=== PATIENT | female | born 1995 | race Caucasian/White ===

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

== ENCOUNTER 2018-05-05 20:55 | Emergency (ER) | payer BC ==
--- NOTE | 2018-05-05 21:29 | EDPHY ---
H & P Time Seen by Provider: 05/05/18 21:12 HPI/ROS: CHIEF COMPLAINT: Scalp laceration HISTORY OF PRESENT ILLNESS: 22-year-old female arrives via private vehicle stating that she was walking in the dark, impacted a branch impacting the vertex of her head sustaining laceration. No headache. No nausea or vomiting. No loss of consciousness. Full recollection of all events. No amnesia. No midline C-spine pain. No peripheral paresthesia, weakness, numbness. Tetanus up-to-date. PRIMARY CARE PROVIDER: REVIEW OF SYSTEMS: 10 systems reviewed and negative with the exception of the elements mentioned in the history of present illness PAST MEDICAL/SURGICAL HISTORY: no anticoagulant use, no relevant medical/ surgical history SOCIAL HISTORY: Positive for alcohol use earlier today PHYSICAL EXAM 1) GENERAL: Well-developed, well-nourished, alert and oriented. Appears anxious , hyperventilating Answering questions appropriately. 2) HEAD: Normocephalic, 8 cm v-shaped flap laceration on the vertex of scalp with galea defects identified. 3) HEENT: Pupils equal, round, reactive to light bilaterally. Negative Horners. Nasopharynx, oropharynx, clear. No deformity or angulation of nose. No septal hematoma. No rhinorrhea. No oral trauma. Ears bilaterally with normal tympanic membranes. No hemotympanum. No fluid or blood in the external auditory canal. No raccoon eyes. No Young sign. Teeth are normally aligned with no gross malocclusion, TMJ bilaterally nontender, facial bones nontender including the zygomatic arch, maxilla mandible. 4) NECK: No cervical collar is on. Posterior cervical spine is nontender, no stepoff, no effusion. Full range of motion which does not elicit any midline cervical spine pain, no posterior midline tenderness, no step-off. 5) LUNGS: Clear to auscultation bilaterally, no wheezes, no rhonchi, no retractions. No obvious signs of trauma. No chest wall pain. No flaring, no grunting. Moving symmetrically. No crepitus. 6) HEART: [Regular rate and rhythm, 7) ABDOMEN: No guarding, no rebound, no focal tenderness, no peritoneal signs, no signs of trauma, no ecchymosis 8) MUSCULOSKELETAL: Moving all extremities, no focal areas of tenderness, no obvious trauma. 9) BACK: No midline vertebral tenderness, no fluctuance, no step-off, no obvious trauma, no visual or palpable abnormality. 10) SKIN: scalp laceration DIFFERENTIAL DIAGNOSIS: Not necessarily in any particular order, my differential diagnosis includes, but is not limited to, concussion, skull fracture, intraparenchymal contusion, subarachnoid, subdural and epidural hematoma. The patient understands that this diagnosis is provisional and can never be 100% accurate. Smoking Status: Never smoked Constitutional: Initial Vital Signs Temperature (C) 36.6 C 05/05/18 20:57 Heart Rate 92 05/05/18 20:57 Respiratory Rate 20 05/05/18 20:57 Blood Pressure 121/96 H 05/05/18 20:57 O2 Sat (%) 94 05/05/18 20:57 O2 Delivery Mode Room Air Allergies/Adverse Reactions: No Known Allergies Allergy (Unverified 05/05/18 20:57) Home Medications: Medication Instructions Recorded CALCIUM 12/09/16 Methotrexate 05/05/18 MDM/Departure - [facility] Procedures: Procedure: Laceration repair. I explained the indications, risks and benefits for both laceration repair and anesthetic administration. Verbal consent was obtained from the patient. The laceration on the vertex of the scalp was anesthetized using 0.5% bupivicaine with epinephrine. After anesthetic administered the patient was observed for a period of time and had no apparent adverse effects. The wound was cleaned, prepped, draped in normal sterile fashion and explored to its base. No foreign body seen, no foreign bodies palpated. Galea defects identified closed with 4 simple interrupted 5 0 Vicryl sutures. Skin closed with 20 staple The wound repair was complex. The procedure was performed by myself. Patient has been informed that scarring will occur, although efforts have been made to minimize this. ED Course/Re-evaluation: Negative [place] head and C-spine decision-making tools. I Do not think that imaging indicated at this time. She is noted to have a laceration to the vertex forehead which is closed primarily in the ER after copious irrigation. No foreign bodies visualized or palpated on exam. Informed that scarring will occur. Has been given usual and customary head injury and wound precautions and instructions. Feels comfortable being discharged. Care of patient under supervision of secondary supervising physician Dr Vences. - Depart Disposition: Home, Routine, Self-Care Clinical Impression: Laceration of scalp Qualifiers: Encounter type: initial encounter Qualified Code(s): S01.01XA - Laceration without foreign body of scalp, initial encounter Condition: Good Instructions: Laceration (ED) Additional Instructions: Return to the ER if you develop redness, swelling, discharge, warmth to the wound, red streaks going up your arm or leg, or any other symptoms that concern you. Referrals: Return, to the ER in 7 days for staple removal [Other] - As per Instructions
[2018-05-05 23:05] VITALS: BP 120/86
== END 2018-05-05 23:07 | disposition home or self-care (01) ==
PROC: 0HQ0XZZ Repair Scalp Skin, External Approach (ICD-10-PCS; principal; 2018-05-05)
DX: S01.01XA Laceration without foreign body of scalp, initial encounter (principal); W22.8XXA Striking against or struck by other objects, initial encounter; Y92.480 Sidewalk as the place of occurrence of the external cause